=== PATIENT | female | born 1990 ===

== ENCOUNTER 2017-12-22 12:18 | Day surgery (SDC) | payer OTHER ==
[2017-12-14 10:06] VITALS: BMI 26.2
[2017-12-22] MEDS ORDERED: Propofol 10 mg/ml Inj (20 ML) ONE (13:46)
[2017-12-22] MEDS ORDERED: Succinylcholine Chloride 20 mg/ml Syr (5 ml) IV ONE (13:48)
[2017-12-22] MEDS ORDERED: Rocuronium 10 mg/ml (5 ml) ONE (13:48)
[2017-12-22] MEDS ORDERED: Midazolam 2 MG/2 ML VIAL ONE (13:48)
[2017-12-22] MEDS ORDERED: Neostigmine Methylsulfate 3mg/3ml Syringe IV ONE (13:49)
[2017-12-22] MEDS ORDERED: HYDROmorphone 0.5 mg/0.5 ml ISec IVP PRN (14:16)
[2017-12-22] MEDS ORDERED: Bupivacaine 0.25% 20 ML INJ IJ ONE (14:47)
[2017-12-22] MEDS ORDERED: cefOXitin IV 1 gm in Dextrose 2 GM/100 ML BAG IVPB ONE (14:47)
[2017-12-22] MEDS ORDERED: Methylene Blue 10 mg/mL(10ml) IV ONE (15:23)
--- NOTE | 2017-12-22 16:10 | PCM.SURG1 ---
Surgeon's Initial Post Op Note - Surgeon's Notes Surgeon: Dr Marie Brim Shaper: Dr Reyes Type of Anesthesia: General Endo Anesthesia Administered By: Dr. Sepulveda Pre-Operative Diagnosis: 27 yo with Chronic Pelvic pain, Irregular mentrual cycle , Operative Findings: Av uterus multiple adhesion , evidence of endometriosis , Ovarian cyst , Bilateral ovarian drilling , chemotubation , Bilateral tubes are patent Post-Operative Diagnosis: Same as above Operation Performed: Fractional D and C , Laparoscopy , Lysis of adhesion, Ovarian drilling,Chemotubation Specimen/Specimens Removed: EMC,ECC Estimated Blood Loss: EBL {In ML}: 10 Blood Products Given: N/A Drains Used: No Drains Post-Op Condition: Good Date of Surgery/Procedure: 12/22/17 Time of Surgery/Procedure: 16:12
[2017-12-22] MEDS ORDERED: Lactated Ringer's 1,000 ML IV ONE (17:58)
[2017-12-22 18:06] VITALS: RESP 16; TEMP 97.6
[2017-12-22 19:06] VITALS: BP 101/62; PULSE 86; O2SAT 98
--- NOTE | 2018-01-24 21:54 | OP ---
Copied To: Laly Marie MD Attending MD: Laly Marie MD PROCEDURE DATE: 12/22/2017 PREOPERATIVE DIAGNOSES: A 27-year-old female with history of chronic pelvic pain and irregular menstrual cycle. POSTOPERATIVE DIAGNOSIS: A 27-year-old female with history of chronic pelvic pain, irregular menstrual cycle, noted to have multiple adhesions, evidence of endometriosis. Bilateral tubes were demonstrated to be patent. PROCEDURE: Fractional dilatation and curettage, laparoscopy, lysis of adhesion, ovarian drilling, and chromotubation. SURGEON: Laly Marie MD COMPOSITE SCIENCE TEACHER: Stephen Reyes MD TYPE OF ANESTHESIA: General anesthesia. ANESTHESIOLOGIST: Dr. Briceño FINDINGS: Anteverted uterus, approximately 10 weeks' gestation, noted to have evidence of endometriosis, scar tissue due to the endometriosis. Ovarian/bilateral ovarian drilling was performed which demonstrated that the tubes were patent as well as chromotubation. She also had evidence of polycystic ovarian syndrome. COMPLICATIONS: None. ESTIMATED BLOOD LOSS: Approximately 10 mL. INTRAVENOUS FLUIDS: 1 L. URINE OUTPUT: 200 mL. SPECIMEN: EMC and ECC. DESCRIPTION OF PROCEDURE: The patient was informed of the risk factors, benefits, and alternatives of the procedure. Risks factors included infection, bleeding, damage to the surrounding organs and tissues, complication from anesthesia and even possible . All questions were answered prior to obtaining the consent form. Once the questions were all answered, the consent form was then obtained. In that particular instance, she was then transferred to the operating room where general anesthesia was obtained without difficulty. The patient was then examined under anesthesia and found to have a small anteverted uterus of approximately 10 weeks' gestation. She was placed in dorsal lithotomy position and prepped and draped in normal sterile fashion. A weighted speculum was placed in the vagina and the anterior lip of the cervix was grasped with single-toothed tenaculum. A fractional D and C was then performed. EMC and ECC were submitted to Pathology. Excellent hemostasis was noted. A HUMI uterine manipulator was then advanced to the uterus to provide the means to manipulate the uterus and the speculum was then removed from the vagina as well as the weighted speculum. Attention was then turned to the patient's abdomen where a 5-mm optic trocar was then utilized and an incision was made in the umbilical fold. On , the optic trocar was then introduced and intraabdominal pressure with insufflation of CO2 gas given 4 L. The trocar and the sleeve were then advanced without any difficulty. Pneumoperitoneum was then obtained with 4 L of CO2 gas. Surveillance of the uterine cavity was then performed, noted to have multiple adhesions due to the endometriosis. She also had polycystic ovarian syndrome. Ovarian drilling was planned because of the polycystic ovarian syndrome. A second skin incision was made 2 cm above the symphysis pubis in the midline. The trocar and the sleeve were then advanced without any difficulty under direct visualization. previously mentioned about the endometriosis and the scar tissue, lysis of adhesion was then performed, chromotubation, excellent hemostasis was noted. Methylene blue was used for the chromotubation which demonstrated the bilateral tubes were patent. Upon complete surveillance and the lysis of adhesions as well as ovarian drilling was performed on bilateral ovaries, excellent hemostasis was noted. The instruments were removed from the patient's abdomen and the incision was repaired with 3-0 Monocryl. The HUMI was then removed from the vagina, and there was no bleeding noted from the cervix. The patient tolerated the procedure well. Sponge, lap, and needle counts were correct x2. The patient was then taken to the recovery room in stable condition and instructed to follow up in the office in approximately two weeks. Laly Marie MD
== END 2017-12-22 19:08 | disposition home or self-care (01) ==
LOC: C.SDS 12:18
PROVIDERS: ATTEND Obstetrics & Gynecology
DX: N80.0 Endometriosis of uterus (principal); E28.2 Polycystic ovarian syndrome; N92.0 Excessive and frequent menstruation with regular cycle; N73.6 Female pelvic peritoneal adhesions (postinfective); N92.6 Irregular menstruation, unspecified; G89.29 Other chronic pain; R10.2 Pelvic and perineal pain
CPT/HCPCS: 58120; 58350; 58999; 88305; J0694; J1885; J2250; J2405; J2704; J2710; J3010; J7120